=== PATIENT | female | born 1940 | race Hispanic/Latino ===

== ENCOUNTER 2017-10-22 10:01 | Day surgery (SDC) | payer MEDICARE ==
[2017-10-12 11:56] VITALS: BMI 23.8
[2017-10-22] MEDS ORDERED: Propofol 10 mg/ml Inj (20 ML) ONE (13:19)
[2017-10-22] MEDS ORDERED: Lidocaine 1% Inj (20ml) ONE (13:19)
[2017-10-22] MEDS ORDERED: cefTRIAXone (Rocephin) 1 gm Inj ONE (13:21)
[2017-10-22] MEDS ORDERED: Lactated Ringer's 1,000 ML IV SCH (14:15)
[2017-10-22 14:23] VITALS: RESP 18
[2017-10-22 15:10] VITALS: TEMP 97.7; O2SAT 98
[2017-10-22 15:34] VITALS: BP 108/55; PULSE 81
--- NOTE | 2017-10-23 08:21 | OP ---
PROCEDURE DATE: 10/22/2017 PREOPERATIVE DIAGNOSIS: Bladder tumor. POSTOPERATIVE DIAGNOSIS: Bladder tumor. PROCEDURES: Cystoscopy, transurethral resection of medium bladder tumor and fulguration of bladder tumor. ATTENDING SURGEON: Louis Best MD. TYPE OF ANESTHESIA: General. SPECIMENS: Bladder tumor chips were sent to pathology. DRAINS: A 20-Angolan two-way Castellano catheter. COMPLICATIONS: There were none. OPERATIVE FINDINGS: After informed consent was obtained, the patient was taken to the operating room and placed on the operating table. Anesthesia was administered. The patient was placed in the dorsal lithotomy position and prepped and draped in usual sterile fashion. The patient received IV antibiotics prior to start of the procedure. A 22-Angolan cystoscope was advanced into the patient's bladder and a full survey inspection was performed. There was noted to be a raised, ragged low lying tumor noted on the left lateral wall. There were flat areas of tumor extending upward towards the dome and inferiorly towards the ureteral orifice, but not involving the left ureteral orifice. Both ureteral orifices were visualized and they appeared within normal limits. They were not involved in the tumor process. There were no other satellite lesions noted. At this point, decision was made to resect the tumor given its size. The 22-Angolan scope was removed and a 26-Angolan resectoscope was then passed. Using a resecting loop, the tumor was resected in its entirety down into the muscular wall. Any bleeding points encountered during the resection were controlled using electrocautery. When the main tumor had been resected, the resecting loop was removed and a rollerball electrode was placed. The base of the tumor was then cauterized along with areas of the low lying tumor. Area of normal mucosa surrounding the tumor area was also cauterized. Care was taken to preserve the left ureteral orifice, which was left intact. At this point, the bladder tumor chips were evacuated and sent to pathology. A final inspection was then made, which revealed no remaining tumor. There was no bleeding with complete hemostasis from the tumor bed. There were no other remaining lesions. At this point, the procedure was complete, the bladder was drained, and a 20-Angolan two-way Castellano catheter was then passed and placed to straight bladder drainage. Plan will be to remove the Castellano catheter tomorrow. The patient tolerated the procedure well. She was returned to the supine position and taken to the recovery room awake and in stable condition. Louis Best MD :[id number]
== END 2017-10-22 16:00 | disposition home or self-care (01) ==
LOC: SDS 10:01
PROVIDERS: ATTEND Urology
DX: C67.9 Malignant neoplasm of bladder, unspecified (principal); G20 Parkinson's disease; E78.00 Pure hypercholesterolemia, unspecified
CPT/HCPCS: 52235; 88307; J0360; J0696; J2704; J3010; J7120 ×2

== ENCOUNTER 2018-01-28 06:06 | Day surgery (SDC) | payer MEDICARE ==
[2018-01-09 11:43] VITALS: BMI 24.9
[2018-01-28] MEDS ORDERED: cefTRIAXone (Rocephin) 1 gm Inj ONE (08:10)
[2018-01-28] MEDS ORDERED: Iohexol 240 (50 ml) ONE (08:11)
[2018-01-28] MEDS ORDERED: Propofol 10 mg/ml Inj (20 ML) ONE (08:12)
[2018-01-28] MEDS ORDERED: cefTRIAXone 1 GM in NS 100 ML BAG IVPB ONE (08:28)
[2018-01-28] MEDS ORDERED: Iohexol 240 (50 ml) UR ONE (08:29)
[2018-01-28] MEDS ORDERED: Desflurane Inhalation Anesthetic Liq (240 ml) ONE (08:44)
[2018-01-28] MEDS ORDERED: HYDROmorphone 0.5 mg/0.5 ml ISec IVP PRN (09:00)
[2018-01-28] MEDS ORDERED: Lactated Ringer's 1,000 ML IV SCH (09:00)
[2018-01-28 10:22] VITALS: RESP 18; TEMP 97.8
[2018-01-28 11:03] VITALS: BP 94/57; PULSE 94; O2SAT 99
--- NOTE | 2018-01-28 15:24 | RAD ---
PROCEDURE: Retrograde pyelogram HISTORY: Bilateral retrograde pyelogram COMPARISON: TECHNIQUE: Fluoroscopy was provided in the operating room. 93.5 seconds of fluoro time. Twenty-four images were submitted. FINDINGS: The ureters and renal collecting systems are unremarkable with no filling defects or obstruction IMPRESSION: Negative study
--- NOTE | 2018-01-28 16:51 | OP ---
PROCEDURE DATE: 01/28/2018 PREOPERATIVE DIAGNOSIS: Bladder cancer. POSTOPERATIVE DIAGNOSIS: Bladder cancer. PROCEDURES: A cystoscopy, bladder biopsies and fulguration, bilateral retrograde pyelograms. ATTENDING SURGEON: Louis Best MD. ANESTHESIA: General. SPECIMENS: Bladder biopsies were sent to pathology. DRAINS: There were none. COMPLICATIONS: There were none. OPERATIVE FINDINGS: After informed consent was obtained, the patient was taken to the operating room and placed on the operating table. Anesthesia was administered. The patient was placed in dorsal lithotomy position, prepped and draped in the usual sterile fashion. The patient received IV antibiotics prior to start of the procedure. A 22-Estonian cystoscope was then advanced into the patient's bladder under direct vision and a full survey inspection was performed. There were no stones, papillary tumors or foreign bodies of the bladder noted. Both ureteral orifices were visualized and appeared within normal limits. There was some raised erythema around the prior resection site on the left floor proximal to the left ureteral orifice. There was a little area of ragged tissue again in this same area. At this point, a 5-Estonian flexible tip catheter was introduced through the cystoscope and guided into the left ureteral orifice. Left retrograde pyelogram was then performed by filling contrast through the catheter into the left ureter during real-time fluoroscopy. There was no evidence of filling defect in the left ureter or collecting system. There was some mild fullness of the collecting system. However, contrast was noted to drain promptly from the kidney down the entirety of the ureter and into the bladder without any evidence of obstruction and again no evidence of filling defect. At this point, the catheter was introduced into the right ureteral orifice and a right retrograde pyelogram was performed. The right retrograde pyelogram also appeared grossly within normal limits. There was no evidence of filling defect or obstruction and the films were submitted to Radiology for interpretation. At this point, the catheter was removed and a cold cup biopsy forceps was passed. Biopsy of the small ragged area and of the erythema in the prior tumor base were taken and sent to pathology as specimen. A Bugbee electrode was then passed and the biopsy sites were then cauterized along with an area of surrounding mucosa. Final inspection was then made. Hemostasis was complete. There were no other suspicious lesions noted. At this point, the procedure was completed. The bladder was drained. The cystoscope was removed. The patient tolerated the procedure well. She was taken to the recovery room awake and in stable condition. Louis Best MD
== END 2018-01-28 11:10 | disposition home or self-care (01) ==
LOC: SDS 06:06
PROVIDERS: ATTEND Urology
DX: C67.9 Malignant neoplasm of bladder, unspecified (principal); G20 Parkinson's disease; H40.9 Unspecified glaucoma
CPT/HCPCS: 52005; 52224; 74420; 88305; J0360; J0696; J1170; J2001; J2405; J2704; J3010; J7120; Q9966

== ENCOUNTER 2018-09-02 06:10 | Day surgery (SDC) | payer MEDICARE ==
[2018-09-02] MEDS ORDERED: Propofol 10 mg/ml Inj (20 ML) ONE (07:23)
[2018-09-02] MEDS ORDERED: cefTRIAXone (Rocephin) 1 gm Inj ONE (07:38)
[2018-09-02] MEDS ORDERED: Iohexol 240 (50 ml) ONE (07:38)
[2018-09-02] MEDS ORDERED: Lidocaine 2% Jelly (Uro-Jet) ONE (07:39)
[2018-09-02] MEDS ORDERED: Lactated Ringer's 1,000 ML IV SCH (09:00)
[2018-09-02 09:52] VITALS: RESP 18; TEMP 97.5
[2018-09-02 10:13] VITALS: BMI 23.8
[2018-09-02 10:22] VITALS: O2SAT 96
--- NOTE | 2018-09-02 10:41 | OP ---
PROCEDURE DATE: 09/02/2018 PREOPERATIVE DIAGNOSIS: Bladder cancer history. POSTOPERATIVE DIAGNOSIS: Bladder cancer history. PROCEDURE: Cystoscopy with bilateral retrograde pyelograms, bladder biopsy and fulguration. ATTENDING SURGEON: Louis Best MD ANESTHESIA: General. SPECIMENS: Bladder biopsy was sent to pathology. DRAINS: None. COMPLICATIONS: None. OPERATIVE FINDINGS: After informed consent was obtained, the patient was taken to the operating room, placed on the operating table. Anesthesia was administered. The patient was placed in a dorsal lithotomy position and prepped and draped in the usual sterile fashion. A 21-Tristanian cystoscope was then advanced under direct vision into the patient's bladder and a full survey inspection was performed. There were no stones, papillary tumors or foreign bodies noted. There was a healed scar on the left lateral wall. Both ureteral orifices were identified and appeared within normal limits. Just distal to the left ureteral orifice and medial, there was slightly raised scallopy appearing mucosa. There were no other abnormalities noted. Inspection was made with a 30 and 70-degrees lenses. At this point, a Guthrie catheter was introduced through the cystoscope and guided into the left ureteral orifice. Left retrograde pyelogram was then performed by instilling contrast through the Guthrie catheter into the left ureter during real-time fluoroscopy. The left retrograde pyelogram appeared grossly within normal limits. There was no evidence of obstruction and no filling defects were noted. The system was noted to drain promptly. At this point, the Guthrie catheter was introduced into the right ureteral orifice and a right retrograde pyelogram was performed in a similar fashion. The right retrograde pyelogram also appeared grossly within normal limits. The films were submitted to Radiology for interpretation. After retrogrades were performed, the open-ended catheter was removed and a cold cup biopsy forceps was passed. Biopsy of the raised mucosa distal to the left ureteral orifice was then taken and sent to pathology as specimen. A Bovie electrode was then passed and the biopsy site was then cauterized along with the area of abnormal mucosa. Care was taken to avoid the ureteral orifice which was left intact. At this point, a final inspection was made. There was complete hemostasis from the biopsy site and no remaining suspicious lesions. At this point, the procedure was completed, the bladder was then drained and the patient was returned to the supine position. She tolerated the procedure well. She was taken to the recovery room awake in stable condition. Louis Best MD
[2018-09-02 10:51] VITALS: BP 150/72; PULSE 74
--- NOTE | 2018-09-02 13:43 | RAD ---
Date of service: 09/02/2018 PROCEDURE: Fluoroscopy up to 1 hr. HISTORY: R/O OBSTRUCTION COMPARISON: None TECHNIQUE: Standard protocol for this study/examination. FINDINGS: Total fluoroscopic time (continuous mode) utilized during the procedure 33.3 seconds. Total exam DLP: 6.83 (mGy). IMPRESSION: Less than 1 hr fluoroscopic assistance provided during performance of the procedure.
== END 2018-09-02 11:15 | disposition home or self-care (01) ==
LOC: SDS 06:10
PROVIDERS: ATTEND Urology
DX: N30.80 Other cystitis without hematuria (principal); Z85.51 Personal history of malignant neoplasm of bladder
CPT/HCPCS: 52204; 74420; 88305; C1758; J0696; J2001; J2405; J2704; J3010; J7120 ×2; Q9966

== ENCOUNTER 2018-12-06 12:59 | Outpatient (CLI) | payer MEDICARE | END 2018-12-06 13:00 | disposition home or self-care (01) | LOC: CARDIO 12:59 ==